=== PATIENT | female | born 1995 | race Caucasian/White ===

== ENCOUNTER → 2017-06-10 | Outpatient (CLI) | payer BC, OTHER ==
--- NOTE | 2017-06-10 08:54 | DIAGNOSTIC IMAGING REPORT ---
L FINGER(S) MIN 2 VIEWS HISTORY: 22 years-old Female LEFT INDEX FINGER PAIN acute pain of the left second digit without reported trauma. Initial exam. COMPARISON: None available. TECHNIQUE: 3 views of the left index finger. FINDINGS: Bone mineralization is within normal limits. There is no acute fracture or dislocation, significant degenerative changes or opaque foreign body. There is mild soft tissue swelling. IMPRESSION: Mild soft tissue swelling without acute bony abnormality. The above report was generated using voice recognition software. It may contain grammatical, syntax or spelling errors. Electronically signed by: Finn Strauss M.D. 06/10/2017 8:52 AM Dictated Date/Time: 06/10/2017 8:51 AM
== END | disposition home or self-care (01) ==
LOC: C.RDSM 11:43
PROVIDERS: ATTEND Family Medicine
DX: S69.92XA Unspecified injury of left wrist, hand and finger(s), initial encounter (principal); X58.XXXA Exposure to other specified factors, initial encounter

== ENCOUNTER → 2018-04-28 | Outpatient (CLI) | payer BC, OTHER | END | disposition home or self-care (01) | LOC: C.RDSM 09:45 | PROVIDERS: ATTEND Orthopaedic Surgery | DX: R52 Pain, unspecified (principal) ==